=== PATIENT | female | born 1980 | race Two or more races ===

== ENCOUNTER 2021-09-29 18:39 | Emergency (ER) | payer SELFPAY ==
[~2021-09-29] VITALS: Ht 165.1 cm; Wt 136.4 kg
[2021-09-29] MEDS ORDERED: IBUP-2071 PO (19:02)
[2021-09-29] MEDS ORDERED: DICLOFENAC SODIUM 1% 100 GM GEL [2GM] TP ONE (20:45)
[2021-09-29] MEDS ORDERED: HYDR-4723 PO (22:10)
[2021-09-29 22:14] VITALS: BP 146/78
== END 2021-09-29 22:17 | disposition home or self-care (01) ==
LOC: EMS 18:45
DX: M25.531 Pain in right wrist (principal)
CPT/HCPCS: 84550; 99284